=== PATIENT | male | born 1965 | race Caucasian/White ===

== ENCOUNTER 2017-01-09 10:16 | Emergency (ER) | payer OTHER | END 2017-01-09 11:07 | disposition home or self-care (01) | LOC: FER 10:16 | DX: S39.012A Strain of muscle, fascia and tendon of lower back, initial encounter (principal); M51.37 Other intervertebral disc degeneration, lumbosacral region; G40.909 Epilepsy, unspecified, not intractable, without status epilepticus; Z79.899 Other long term (current) drug therapy; X50.0XXA Overexertion from strenuous movement or load, initial encounter; Y92.009 Unspecified place in unspecified non-institutional (private) residence as the place of occurrence of the external cause | CPT/HCPCS: 72110; J1885 ==

== ENCOUNTER 2021-09-17 00:48 | Emergency (ER) | payer OTHER ==
[~2021-09-17 00:48] MED LIST: DILANTIN100 MG PO; VITAMIN D32000 UNI1 PO
== END 2021-09-17 01:32 | disposition home or self-care (01) ==
LOC: FER 00:48
DX: M25.512 Pain in left shoulder (principal)
CPT/HCPCS: 99283; J1170